=== PATIENT | female | born 1955 | race Caucasian/White ===

== ENCOUNTER → 2019-06-12 | Outpatient (CLI) | payer OTHER ==
[~2019-06-12] MED LIST: Acular LS 0.4% 55 ML RIGHTEYE; HYDR1TAB94 PO; IBUP800 PO; MISC RIGHTEYE; Ofloxacin5 M1 RIGHTEYE; Omeprazole20 M1 PO; PREDNISOLONE ACE5 ML RIGHTEYE; Percocet 5-3251 EACH PO; XARELTO10 MG PO; Zofran Odt4 MG SL
== END | disposition home or self-care (01) ==
LOC: LAB EV 16:19 → LAB SHORT 16:19
DX: N39.0 Urinary tract infection, site not specified (principal)
CPT/HCPCS: 87077; 87086; 87186

== ENCOUNTER → 2019-06-16 | Outpatient (CLI) | payer OTHER ==
[2019-06-16 17:13] LABS: BODY FLUID RBC 2.068 M/mm3 (0-0); RBC Count, Synovial Fluid 2068000 /mm3 (0-0); WBC Count, Synovial Fluid 7174 /mm3 (0-180)
[2019-06-16 17:23] LABS: Body Fluid Crystals NEG (NEGATIVE)
[2019-06-16 17:25] LABS: Albumin, Body Fluid 0.3 g/dL; Glucose, Body Fluid 5 mg/dL
[2019-06-16 17:34] LABS: Appearance, Synovial Fluid Bloody (Clear); Color, Synovial Fluid Red (None-P Yel)
[2019-06-16 17:38] LABS: Lymphs, Synovial Fluid 17 % (0-15); Monocytes/Macrophages, Synovia 12 % (0-65); Neutrophils, Synovial Fluid 71 % (0-24)
== END | disposition home or self-care (01) ==
LOC: LAB 16:52 → LAB SHORT 16:52
PROVIDERS: Family Medicine
DX: M25.469 Effusion, unspecified knee (principal)
CPT/HCPCS: 82042; 82945; 89051; 89060

== ENCOUNTER 2019-08-11 07:26 | Day surgery (SDC) | payer OTHER ==
[~2019-08-11] VITALS: Ht 180.3 cm; Wt 130.4 kg
[2019-08-11] MEDS ORDERED: MELO7.5 (08:57)
[2019-08-11] MEDS ORDERED: MICROZIDE12.5 M2 (08:58)
--- NOTE | 2019-08-11 09:02 | NUR ---
08/11/19 0902 LD MURDOCK RN POKED TWO TIMES, BOTH INFLITRATED, ONE GOOD IV IN R AC BY RN
== END 2019-08-11 10:25 | disposition home or self-care (01) ==
LOC: ORSCSDS 07:26
PROVIDERS: Internal Medicine Gastroenterology
PROC: 0DBN8ZX Excision of Sigmoid Colon, Via Natural or Artificial Opening Endoscopic, Diagnostic (ICD-10-PCS; principal; 2019-08-11 09:00)
DX: Z12.11 Encounter for screening for malignant neoplasm of colon (principal); I10 Essential (primary) hypertension; K63.5 Polyp of colon; K57.30 Diverticulosis of large intestine without perforation or abscess without bleeding; K64.8 Other hemorrhoids; Z79.899 Other long term (current) drug therapy
CPT/HCPCS: 88305; J2704; J7120

== ENCOUNTER → 2020-06-11 | Outpatient (CLI) | payer OTHER ==
[~2020-06-11] MED LIST changes: +MELO7.5; +MICROZIDE12.5 M2
[2020-06-11 10:34] LABS: BASOPHILS ABSOLUTE AUTO 0.04 K/mm3 (0.00-0.23); BASOPHILS PERCENT AUTO 1 % (0-2); EOSINOPHILS ABSOLUTE AUTO 0.07 K/mm3 (0.00-0.68); EOSINOPHILS PERCENT AUTO 1 % (0-6); Hematocrit 42.1 % (33.0-51.0); Hemoglobin 13.9 g/dL (11.5-16.0); IMMATURE GRAN ABSOLUTE AUTO 0.01 K/mm3 (0.00-0.10); IMMATURE GRAN PERCENT AUTO 0 % (0-1); LYMPHOCYTES ABSOLUTE AUTO 1.74 K/mm3 (0.84-5.20); LYMPHOCYTES PERCENT AUTO 27 % (21-46); MONOCYTES ABSOLUTE AUTO 0.56 K/mm3 (0.16-1.47); MONOCYTES PERCENT AUTO 9 % (4-13); Mean Corpuscular HGB 29.4 pg (26.0-34.0); Mean Corpuscular Volume 89 fL (80-100); Mean Platelet Volume 9.5 fL (9.1-12.4); NEUTROPHILS ABSOLUTE AUTO 4.07 K/mm3 (1.96-9.15); NEUTROPHILS PERCENT AUTO 63 % (41-73); Platelet Count 317 K/mm3 (150-400); RDW Coefficient Variation 13.1 % (11.7-14.2); RDW Standard Deviation 42.6 fL (35.1-46.3); Red Blood Cell Count 4.72 M/mm3 (3.80-5.20); White Blood Cell Count 6.49 K/mm3 (4.00-11.30)
[2020-06-11 10:38] LABS: Anion Gap 8 mmol/L (6-16); Blood Urea Nitrogen 12 mg/dL (8-24); Bun/Creatinine Ratio 13.5 (12.0-20.0); CO2, Blood 29 mmol/L (21-32); Calcium, Blood 9.4 mg/dL (8.5-10.1); Chloride, Blood 103 mmol/L (98-108); Creatinine, Blood 0.89 mg/dL (0.40-1.00); Glomerular Filtration Rate >60 (60-); Glucose, Blood 102 mg/dL (70-99); Potassium, Blood 4.2 mmol/L (3.5-5.5); Sodium, Blood 140 mmol/L (136-145)
== END | disposition home or self-care (01) ==
LOC: LAB EV 10:20 → LAB SHORT 10:20
PROVIDERS: General Practice
DX: M26.621 Arthralgia of right temporomandibular joint (principal)
CPT/HCPCS: 80048; 85025

== ENCOUNTER → 2020-08-21 | Outpatient (CLI) | payer OTHER | END | disposition home or self-care (01) | LOC: LAB SHORT 13:35 → PLD 13:35 | DX: R30.9 Painful micturition, unspecified (principal) | CPT/HCPCS: 87086 ==

== ENCOUNTER 2022-01-20 12:47 | Emergency (ER) | payer OTHER ==
[~2022-01-20] VITALS: Ht 182.9 cm; Wt 129.3 kg
[2022-01-20] MEDS ORDERED: PREG50 PO (13:37)
[2022-01-20] MEDS ORDERED: PREG75 PO (13:42)
[2022-01-20] MEDS ORDERED: Lisinopril-Hct1 EAC4 PO (13:42)
[2022-01-20] MEDS ORDERED: OMEP20ER PO (13:42)
[2022-01-20] MEDS ORDERED: AMLO5 PO (13:43)
[2022-01-20] MEDS ORDERED: TOLT2ER PO (13:43)
[2022-01-20 13:49] LABS: BASOPHILS ABSOLUTE AUTO 0.05 K/mm3 (0.00-0.23); BASOPHILS PERCENT AUTO 1 % (0-2); EOSINOPHILS PERCENT AUTO 1 % (0-6); Hematocrit 40.5 % (33.0-51.0); Hemoglobin 13.5 g/dL (11.5-16.0); IMMATURE GRAN ABSOLUTE AUTO 0.01 K/mm3 (0.00-0.10); IMMATURE GRAN PERCENT AUTO 0 % (0-1); LYMPHOCYTES ABSOLUTE AUTO 2.22 K/mm3 (0.84-5.20); LYMPHOCYTES PERCENT AUTO 27 % (21-46); MONOCYTES ABSOLUTE AUTO 0.59 K/mm3 (0.16-1.47); MONOCYTES PERCENT AUTO 7 % (4-13); Mean Corpuscular HGB 29.5 pg (26.0-34.0); Mean Corpuscular HGB Conc 33.3 g/dL (31.5-36.5); Mean Corpuscular Volume 89 fL (80-100); Mean Platelet Volume 9.3 fL (9.1-12.4); NEUTROPHILS ABSOLUTE AUTO 5.15 K/mm3 (1.96-9.15); NEUTROPHILS PERCENT AUTO 64 % (41-73); Platelet Count 286 K/mm3 (150-400); RDW Coefficient Variation 12.8 % (11.7-14.2); RDW Standard Deviation 41.4 fL (35.1-46.3); Red Blood Cell Count 4.57 M/mm3 (3.80-5.20); White Blood Cell Count 8.12 K/mm3 (4.00-11.30)
[2022-01-20 14:14] LABS: Albumin, Blood 3.8 g/dL (3.4-5.0); Bilirubin, Total 0.5 mg/dL (0.1-1.0); Bun/Creatinine Ratio 20.7 (12.0-20.0); Calcium, Blood 9.5 mg/dL (8.5-10.1); Creatinine, Blood 0.58 mg/dL (0.40-1.00); Globulin, Blood 3.8 g/dL (2.2-4.0); Total Protein, Blood 7.6 g/dL (6.4-8.2)
[2022-01-20] MEDS ORDERED: ASPI81CH PO (17:39)
== END 2022-01-20 18:17 | disposition home or self-care (01) ==
LOC: ER 12:47
PROVIDERS: Physician Assistant
DX: G45.9 Transient cerebral ischemic attack, unspecified (principal); I10 Essential (primary) hypertension; K21.9 Gastro-esophageal reflux disease without esophagitis; E66.9 Obesity, unspecified; Z68.38 Body mass index [BMI] 38.0-38.9, adult; Z79.899 Other long term (current) drug therapy; Z79.82 Long term (current) use of aspirin
CPT/HCPCS: 36415; 70450; 70496; 70498; 80053; 82947; 85025; 93005; 93010; A9270; J0360; J7799; Q9967

== ENCOUNTER → 2022-06-20 | Outpatient (CLI) | payer OTHER ==
[~2022-06-20] MED LIST changes: +AMLO5 PO; +ASPI81CH PO; +Lisinopril-Hct1 EAC4 PO; +OMEP20ER PO; +PREG50 PO; +PREG75 PO; +TOLT2ER PO
== END | disposition home or self-care (01) ==
LOC: LAB 13:42 → LAB SHORT 13:42
DX: L60.0 Ingrowing nail (principal)
CPT/HCPCS: 88305; 88312

== ENCOUNTER → 2022-07-23 | Outpatient (CLI) | payer OTHER ==
[2022-07-23 10:06] LABS: BASOPHILS ABSOLUTE AUTO 0.04 K/mm3 (0.00-0.23); BASOPHILS PERCENT AUTO 0 % (0-2); EOSINOPHILS ABSOLUTE AUTO 0.02 K/mm3 (0.00-0.68); EOSINOPHILS PERCENT AUTO 0 % (0-6); Hematocrit 40.7 % (33.0-51.0); Hemoglobin 13.6 g/dL (11.5-16.0); IMMATURE GRAN PERCENT AUTO 1 % (0-1); LYMPHOCYTES ABSOLUTE AUTO 0.96 K/mm3 (0.84-5.20); LYMPHOCYTES PERCENT AUTO 5 % (21-46); MONOCYTES ABSOLUTE AUTO 1.48 K/mm3 (0.16-1.47); MONOCYTES PERCENT AUTO 8 % (4-13); Mean Corpuscular HGB 29.8 pg (26.0-34.0); Mean Corpuscular HGB Conc 33.4 g/dL (31.5-36.5); Mean Corpuscular Volume 89 fL (80-100); NEUTROPHILS ABSOLUTE AUTO 16.38 K/mm3 (1.96-9.15); NEUTROPHILS PERCENT AUTO 86 % (41-73); Platelet Count 296 K/mm3 (150-400); RDW Coefficient Variation 13.4 % (11.7-14.2); Red Blood Cell Count 4.56 M/mm3 (3.80-5.20); White Blood Cell Count 18.98 K/mm3 (4.00-11.30)
[2022-07-23 10:17] LABS: Albumin, Blood 3.9 g/dL (3.4-5.0); Bilirubin, Total 0.9 mg/dL (0.1-1.0); Bun/Creatinine Ratio 15.8 (12.0-20.0); Calcium, Blood 9.3 mg/dL (8.5-10.1); Creatinine, Blood 0.76 mg/dL (0.40-1.00); Globulin, Blood 3.8 g/dL (2.2-4.0); Potassium, Blood 4.3 mmol/L (3.5-5.5); Total Protein, Blood 7.7 g/dL (6.4-8.2)
== END | disposition home or self-care (01) ==
LOC: LAB 10:02 → LAB SHORT 10:02
PROVIDERS: Physician Assistant Medical
DX: Z20.9 Contact with and (suspected) exposure to unspecified communicable disease (principal)
CPT/HCPCS: 80053; 85025

== ENCOUNTER → 2023-04-21 | Outpatient (CLI) | payer OTHER ==
[2023-04-21 14:05] LABS: Source, Urine Voided
[2023-04-21 16:19] LABS: Red Blood Cells, Urine 0-2 /hpf (0-2)
[2023-04-21 16:20] LABS: Bacteria Few /hpf; Squamous Epithelial Cells Few /hpf (Few)
[2023-04-22 10:35] LABS: Candida species (DNA Probe) Negative (NEGATIVE); G. vaginalis (DNA Probe) Negative (NEGATIVE); T. vaginalis (DNA Probe) Negative (NEGATIVE)
== END | disposition home or self-care (01) ==
LOC: LAB SHORT 14:03 → LAB 14:03
PROVIDERS: Family Medicine
DX: R30.0 Dysuria (principal); N89.8 Other specified noninflammatory disorders of vagina
CPT/HCPCS: 81015; 87086; 87480; 87510; 87660

== ENCOUNTER 2024-03-02 19:40 | Emergency (ER) | payer OTHER ==
[~2024-03-02] VITALS: Ht 180.3 cm; Wt 136.1 kg
[2024-03-02 21:09] LABS: BASOPHILS ABSOLUTE AUTO 0.04 K/mm3 (0.00-0.23); BASOPHILS PERCENT AUTO 1 % (0-2); EOSINOPHILS ABSOLUTE AUTO 0.09 K/mm3 (0.00-0.68); EOSINOPHILS PERCENT AUTO 1 % (0-6); Hemoglobin 13.4 g/dL (11.5-16.0); IMMATURE GRAN ABSOLUTE AUTO 0.02 K/mm3 (0.00-0.10); IMMATURE GRAN PERCENT AUTO 0 % (0-1); LYMPHOCYTES ABSOLUTE AUTO 2.56 K/mm3 (0.84-5.20); LYMPHOCYTES PERCENT AUTO 29 % (21-46); MONOCYTES PERCENT AUTO 8 % (4-13); Mean Corpuscular HGB 29.7 pg (26.0-34.0); Mean Corpuscular HGB Conc 33.5 g/dL (31.5-36.5); Mean Corpuscular Volume 89 fL (80-100); NEUTROPHILS ABSOLUTE AUTO 5.42 K/mm3 (1.96-9.15); NEUTROPHILS PERCENT AUTO 61 % (41-73); Platelet Count 296 K/mm3 (150-400); RDW Coefficient Variation 13.2 % (11.7-14.2); RDW Standard Deviation 43.4 fL (35.1-46.3); Red Blood Cell Count 4.51 M/mm3 (3.80-5.20); White Blood Cell Count 8.83 K/mm3 (4.00-11.30)
[2024-03-02 21:34] LABS: Albumin, Blood 3.6 g/dL (3.4-5.0); Albumin/Globulin Ratio 1.1 (0.8-1.8); Bilirubin, Total 0.5 mg/dL (0.1-1.0); Bun/Creatinine Ratio 26.6 (12.0-20.0); Calcium, Blood 8.9 mg/dL (8.5-10.1); Creatinine, Blood 0.64 mg/dL (0.40-1.00); Globulin, Blood 3.3 g/dL (2.2-4.0); Potassium, Blood 4.1 mmol/L (3.5-5.5); Total Protein, Blood 6.9 g/dL (6.4-8.2)
[2024-03-03] MEDS ORDERED: NS 1,000 ML IV SCH (00:15)
[2024-03-03] MEDS ORDERED: Ketorolac Tromethamine 30mg Vial IV ONE (00:20)
[2024-03-03] MEDS ORDERED: Acetaminophen 500 MG Tab PO ONE (00:20)
[2024-03-03] MEDS ORDERED: Dexamethasone Sod Phos 10 MG/ML 1ML VIAL IV ONE (00:20)
[2024-03-03 00:30] VITALS: BP 159/73
[2024-03-03] MEDS ORDERED: Prochlorperazine Edisylate 10 mg Vial IV ONE (02:35)
[2024-03-03] MEDS ORDERED: Topiramate 100 MG Tab PO ONE (02:35)
[2024-03-03] MEDS ORDERED: DiphenhydrAMINE HCl 50 MG/ML 1ML Vial IV ONE (02:35)
== END 2024-03-03 03:07 | disposition home or self-care (01) ==
LOC: ER 19:40
PROVIDERS: Physician Assistant
DX: G44.209 Tension-type headache, unspecified, not intractable (principal); E86.0 Dehydration; I10 Essential (primary) hypertension; K21.9 Gastro-esophageal reflux disease without esophagitis; Z68.41 Body mass index [BMI] 40.0-44.9, adult; Z79.899 Other long term (current) drug therapy; Z79.82 Long term (current) use of aspirin
CPT/HCPCS: 70450; 80053; 85025; 96361; 96374; 96375; 99284-25; A9270; J0780; J1100; J1200; J1885; J7030

== ENCOUNTER → 2024-05-11 | Outpatient (CLI) | payer OTHER ==
[2024-05-11 17:51] LABS: Candida Group, PCR NOT DETECTED (NOT DETECT); Candida glabrata-krusei, PCR NOT DETECTED (NOT DETECT)
[2024-05-11 18:54] LABS: Bacterial Vaginosis PCR Positive (NEGATIVE)
[2024-05-20 05:56] LABS: HPV GENOTYPE 16 BY PCR Negative; HPV GENOTYPE 18 BY PCR Negative; HPV SOURCE Cervical; HPV, OTHER HIGH RISK BY PCR Negative
== END | disposition home or self-care (01) ==
LOC: LAB 11:55 → LAB SHORT 11:55
PROVIDERS: Nurse Practitioner Family
DX: Z01.419 Encounter for gynecological examination (general) (routine) without abnormal findings (principal); N89.8 Other specified noninflammatory disorders of vagina
CPT/HCPCS: 87481; 87624; 87661; 87801; 88142

== ENCOUNTER → 2025-02-22 | Outpatient (CLI) | payer OTHER | LOC: LAB 17:13 → LAB SHORT 17:13 | DX: R30.0 Dysuria (principal); L97.322 Non-pressure chronic ulcer of left ankle with fat layer exposed | CPT/HCPCS: 87070; 87075; 87077; 87086; 87186; 87205 ==

== ENCOUNTER → 2025-04-13 | Outpatient (CLI) | payer OTHER | LOC: LAB 13:49 → LAB SHORT 13:49 | DX: L25.9 Unspecified contact dermatitis, unspecified cause (principal) | CPT/HCPCS: 87070; 87075; 87077; 87147; 87186; 87205 ==

== ENCOUNTER → 2025-05-26 | Outpatient (CLI) | payer OTHER | END | disposition home or self-care (01) | LOC: LAB SHORT 12:20 → LAB 12:20 | DX: R30.0 Dysuria (principal) | CPT/HCPCS: 87086 ==

== ENCOUNTER → 2025-05-27 | Outpatient (CLI) | payer OTHER ==
[2025-05-27 18:24] LABS: Bacterial Vaginosis PCR Negative (NEGATIVE); Candida Group, PCR NOT DETECTED (NOT DETECT); Candida glabrata-krusei, PCR NOT DETECTED (NOT DETECT)
== END | disposition home or self-care (01) ==
LOC: LAB SHORT 14:57 → LAB 14:57
PROVIDERS: Nurse Practitioner Family
DX: R30.0 Dysuria (principal)
CPT/HCPCS: 81515

== ENCOUNTER → 2025-08-05 | Outpatient (CLI) | payer OTHER | LOC: LAB SHORT 12:29 → LAB 12:29 | DX: R10.A3 Flank pain, bilateral (principal); R30.0 Dysuria | CPT/HCPCS: 87086; 87147 ==